=== PATIENT | male | born 1970 | race Two or more races ===

== ENCOUNTER 2020-01-06 09:30 | Emergency (ER) | payer MEDICAID ==
[~2020-01-06] VITALS: Ht 162.6 cm; Wt 72.6 kg
[~2020-01-06 09:30] MED LIST: UNOBMED
--- NOTE | 2020-01-06 09:46 | NUR ---
ED Nurse Note: pt ambulated to ed c/o llq and luq pain x 3 days. pt denies n/v/d. pt states pain 9/10. pt was able to ambulate with steady gait to restroom. urine specimen obtained; sent to lab. NAD noted.
[2020-01-06 09:47] VITALS: BP 121/78
--- NOTE | 2020-01-06 09:48 | NUR ---
ED Nurse Note: noted discoloration/scars on pt left upper abdomen.
--- NOTE | 2020-01-06 09:49 | NUR ---
ED Nurse Note: Per ermd, no lab work, will cancel order. awaiting further orders.
[2020-01-06] MEDS ORDERED: NEURONTIN300 MG ORAL (09:53)
[2020-01-06] MEDS ORDERED: IBUPROFEN600 MG ORAL (09:53)
[2020-01-06 10:03] VITALS: BP 126/72
--- NOTE | 2020-01-06 10:03 | NUR ---
ER DISCHARGE NOTE: Patient is cleared to be discharged per ERMD, pt is aox4, on room air, with stable vital signs. pt was given dc and prescription instructions, pt was able to verbalize understanding, pt id band removed. pt is able to ambulate with steady gait. pt took all belongings.
--- NOTE | 2020-01-06 10:11 | Emergency Room Report ---
History of Present Illness General Chief Complaint: Abdominal Pain Source: Patient Present Illness HPI Patient is a 49-year-old male past medical history of alcohol abuse who presents to the ER complaining of pain on his skin in the left upper abdomen. Patient states that he had a rash there a month ago which he thinks was diagnosed as shingles. Patient complains of pain to the skin. He denies any fever or chills. He denies any nausea or vomiting. He denies any diarrhea. Patient states that he does not know what medication he was given for pain. Allergies: Coded Allergies: No Known Allergies (Unverified , 12/18/15) Patient History Social History: Reports: alcohol use Reviewed Nursing Documentation: PMH: Agreed; PSxH: Agreed Nursing Documentation-PM Past Medical History: No History, Except For History Of Psychiatric Problem: Yes - etoh abuse- last 2 mons ago Review of Systems All Other Systems: negative except mentioned in HPI Physical Exam Vital Signs Date Time Temp Pulse Resp B/P (MAP) Pulse Ox O2 Delivery O2 Flow Rate FiO2 01/06/20 09:32 97.0 82 18 121/78 (92) 99 01/06/20 09:47 Room Air Sp02 EP Interpretation: reviewed, normal General Appearance: no apparent distress, alert, GCS 15, non-toxic Head: normocephalic, atraumatic Eyes: bilateral eye normal inspection, bilateral eye PERRL ENT: hearing grossly normal, normal pharynx, no angioedema, normal voice Neck: full range of motion, supple/symm/no masses Respiratory: chest non-tender, lungs clear, normal breath sounds, speaking full sentences Cardiovascular #1: regular rate, rhythm, no edema Cardiovascular #2: 2+ radial (R), 2+ radial (L) Gastrointestinal: normal bowel sounds, non tender, soft, non-distended, no guarding, no rebound Rectal: deferred Genitourinary: normal inspection, no CVA tenderness Musculoskeletal: back normal, normal range of motion, calf tenderness, gait/ station normal, non-tender Neurologic: alert, motor strength/tone normal, oriented x3, sensory intact, responsive, speech normal Psychiatric: judgement/insight normal, memory normal, mood/affect normal, no suicidal/homicidal ideation Skin: other - Healed vesicular rash to approximately T8-9 on the left sided distribution no erythema no active vesicles no tenderness to palpation of the abdomen Lymphatic: no adenopathy Medical Decision Making Diagnostic Impression: Primary Impression: Neuralgia involving abdomen Additional Impression: Herpetic dermatitis ER Course Patient has evidence of postherpetic neuralgia involving the left abdomen along T8-T9 no actual intra-abdominal tenderness. No fever or chills. No nausea or vomiting. Patient given gabapentin as well as Motrin. I have also given him a prescription for both. After discussing risks and benefits of further diagnostics, treatment plans, as well as indications for and risks of admission , the patient is agreeable to being discharged home. I have explained that their evaluation and treatment in the emergency department today is an important step towards them achieving better health but that their evaluation today is not intended to replace further evaluation and treatment by a physician in their local clinic. I have explained that while the current findings suggest no immediate life threatening emergency they will require further evaluation and treatment by a physician of their choice in their area. They understand that it will be necessary for them to review the final reports of their ED visit with their clinic physician. We have reviewed indications for return to the Emergency Department. I have explained that additional time may need to pass and/or additional testing as an outpatient may be necessary before a definitive diagnosis can be made. They tell me they are willing to follow up as instructed within the timeframe I recommend. They appear to understand what we discussed. Additionally they understand that if they are unable to be seen by an outpatient physician they are welcome, and in fact should, return to the Emergency Department for a repeat evaluation. The patient is stable at time of discharge. Last Vital Signs Date Time Temp Pulse Resp B/P (MAP) Pulse Ox O2 Delivery O2 Flow Rate FiO2 01/06/20 10:06 97.0 01/06/20 10:03 78 18 126/72 100 Room Air Disposition: HOME, SELF-CARE Condition: Stable Scripts Gabapentin (Neurontin) 300 Mg Capsule 300 MG ORAL THREE TIMES A DAY for 14 Days, #15 CAP 0 Refills Prov: Natalie Byers M.D. 01/06/20 Ibuprofen* (MOTRIN*) 600 Mg Tablet 600 MG ORAL Q8H PRN for For Pain, #30 TAB 0 Refills Prov: Natalie Byers M.D. 01/06/20 Referrals: [facility] Patient Instructions: Postherpetic Neuralgia Natalie Byers M.D. Jan 06, 2020 10:11
== END 2020-01-06 10:03 | disposition home or self-care (01) ==
LOC: EMR 10:00
DX: B02.29 Other postherpetic nervous system involvement (principal); L30.8 Other specified dermatitis
CPT/HCPCS: 99282